=== PATIENT | female | born 1985 | race Caucasian/White ===

== ENCOUNTER → 2016-11-02 | Outpatient (CLI) | payer SELFPAY ==
[2016-11-02 10:02] LABS: BASOPHILS # (AUTO) 0.04 10*3/UL; BASOPHILS % (AUTO) 0.9 % (0-1); EOSINOPHILS # (AUTO) 0.02 10*3/UL; EOSINOPHILS % (AUTO) 0.5 % (0-8); HEMATOCRIT 36.5 % (37.0-47.0); HEMOGLOBIN 12.5 g/dL (12.0-16.0); LYMPHOCYTES # (AUTO) 0.84 10*3/uL; MEAN CORPUSCULAR HEMOGLOBIN 28.2 PG (27-31); MEAN CORPUSCULAR HGB CONC 34.2 g/dL (33-37); MEAN CORPUSCULAR VOLUME 82.4 FL (81-99); MEAN PLATELET VOLUME 9.5 FL (7.4-12.2); MONOCYTES # (AUTO) 0.75 10*3/UL (0.3-0.8); MONOCYTES % (AUTO) 17.6 % (5-15); NEUTROPHILS # (AUTO) 2.59 10*3/UL; RED BLOOD COUNT 4.43 10^6/uL (4.20-5.40)
[2016-11-02 10:10] LABS: PLATELET MORPHOLOGY COMMENT NORMAL MORPHOLOGY (NORM); RBC MORPHOLOGY COMMENT NORMAL MORPHOLOGY (NORM); WBC MORPHOLOGY COMMENT NORMAL MORPHOLOGY (NORM)
[2016-11-02 10:40] LABS: HIV ANTIBODY NEGATIVE (N); HIV-1 P24 ANTIGEN NEGATIVE (N)
[2016-11-04 08:46] LABS: HEP B SURFACE AG Negative (Negative)
== END ==
LOC: MOB LAB 09:21
PROVIDERS: ATTEND Obstetrics & Gynecology
DX: Z36 Encounter for antenatal screening of mother (principal)
CPT/HCPCS: 36415; 80081; 86900; 86901; 87088

== ENCOUNTER → 2017-01-30 | Outpatient (CLI) | payer SELFPAY ==
--- NOTE | 2017-01-30 13:40 | DI ---
US OB GTE 14 WEEKS,01/30/2017 10:54 AM: Clinical History: screening. Previous Exam: None at this facility. Findings: Multiple grayscale and color Doppler sonographic images are obtained through the pelvis demonstrating a single live intrauterine gestation in vertex presentation. Amniotic fluid level is subjectively no rmal. There is normal motion in the limbs. Detected Doppler heart tones measured 146 beats per minute. The placenta is grade 1 and anterior without visible defects. Estimated gestational age was determined by a composite of biparietal diameter, head circumference, a bdominal circumference and femur length yielding an estimated gestational age by ultrasound of 20 wee ks one day. Estimated weight is 337 g (64th percentile). There are no anatomic abnormalities. Impression: Single live intrauterine gestation with size equal to dates. Normal anatomy scan.
== END ==
LOC: US 10:49
PROVIDERS: ATTEND Obstetrics & Gynecology
DX: Z36 Encounter for antenatal screening of mother (principal); Z3A.19 19 weeks gestation of pregnancy
CPT/HCPCS: 76805

== ENCOUNTER 2017-06-11 22:49 | Inpatient (IN) ==
[2017-06-11] MEDS ORDERED: METHYLERGONOVINE MALEATE 0.2 MG/1 ML VIAL IM PRN (22:56)
[2017-06-11] MEDS ORDERED: OXYTOCIN 10 UNIT/1 ML IM PRN (22:56)
[2017-06-11] MEDS ORDERED: Phenylephrine Inj 50 MCG in Normal Saline Flush 0.5 ML IVP PRN (22:56)
[2017-06-11] MEDS ORDERED: ONDANSETRON 4 MG/2 ML VIAL IVP PRN (22:56)
[2017-06-11] MEDS ORDERED: NALOXONE 0.4 MG/1 ML VIAL IVP PRN (22:56)
[2017-06-11] MEDS ORDERED: CALCIUM CARBONATE 500 MG (TUMS) CHEWABLE TABLET PO PRN (22:56)
[2017-06-11] MEDS ORDERED: Lidocaine 1% 10 MG/ML - 20 ML VIAL SUBCUT PRN (22:56)
[2017-06-11] MEDS ORDERED: LIDOCAINE HCL 2 % 10 ML JELLY URO-JECT TOPICAL PRN (22:56)
[2017-06-11] MEDS ORDERED: MISOPROSTOL 200 MCG TABLET RECTAL PRN (22:56)
[2017-06-11] MEDS ORDERED: NORMAL SALINE 10 ML SYRINGE FLUSH IVP PRN (22:56)
[2017-06-11] MEDS ORDERED: CITRIC ACID/SODIUM CITRATE 30 ML CUP PO PRN (22:56)
[2017-06-11] MEDS ORDERED: Famotidine Inj 20 MG in Normal Saline Flush 10 ML IVP PRN ×4 (22:56)
[2017-06-11] MEDS ORDERED: diphenhydrAMINE 50 MG/1 ML VIAL IVP PRN (22:56)
[2017-06-11] MEDS ORDERED: Naloxone Inj 0.01 MG in Normal Saline Flush 1 ML IVP PRN (22:56)
[2017-06-11] MEDS ORDERED: ePHEDrine Inj 5 MG in Normal Saline Flush 1 ML IVP PRN (22:56)
[2017-06-11] MEDS ORDERED: BUTORPHANOL TARTRATE 2 MG/1 ML VIAL IVP PRN (22:56)
[2017-06-11] MEDS ORDERED: LIDOCAINE W/ SODIUM BICARB 0.5 ML SYR SUBD PRN (22:56)
[2017-06-11] MEDS ORDERED: Carboprost Inj 250 MCG/ML AMP IM PRN (22:56)
[2017-06-11] MEDS ORDERED: Metoclopramide Inj 10 MG/2 ML VIAL IV PRN (22:56)
[2017-06-11] MEDS ORDERED: CefOXitin Inj 2 GM in Sodium Chloride 0.9% 100 ML IV PRN (22:56)
[2017-06-11] MEDS ORDERED: Nalbuphine Inj 20 MG/ML Ampule IVP PRN (22:56)
[2017-06-11] MEDS ORDERED: fentaNYL Inj 100 MCG/2 ML VIAL IV PRN (22:56)
[2017-06-11] MEDS ORDERED: TERBUTALINE SULFATE 1 MG/1 ML SDV SUBCUT PRN (22:56)
[2017-06-11] MEDS ORDERED: Oxytocin 20 Units + LR 20 UNIT/1,000 ML BAG IV SCH (23:00)
[2017-06-11] MEDS: Lactated Ringers-OB Dept 1,000 ML PRIMARY IV SCH (23:05)
[2017-06-11 23:28] LABS: Hematocrit [HCT] 33.2 % (37.0-47.0); Hemoglobin [HGB] 11.3 g/dL (12.0-16.0); MEAN CORPUSCULAR HEMOGLOBIN 28.3 PG (27-31); MEAN CORPUSCULAR VOLUME 83.2 FL (81-99); MEAN PLATELET VOLUME 10.3 FL (7.4-12.2); RED BLOOD COUNT 3.99 10^6/uL (4.20-5.40)
[2017-06-11] MEDS ORDERED: Fent/Bupiv 2mcg/0.0625% Epid 250 ML ONE (23:53)
[2017-06-12] MEDS ORDERED: diphenhydrAMINE 50 MG/1 ML VIAL IVP PRN ×2 (00:06→07:06)
[2017-06-12] MEDS ORDERED: Nalbuphine Inj 20 MG/ML Ampule IVP PRN ×2 (00:06→07:06)
[2017-06-12] MEDS ORDERED: Phenylephrine Inj 50 MCG in Normal Saline Flush 0.5 ML IVP PRN (00:06)
[2017-06-12] MEDS ORDERED: BUTORPHANOL TARTRATE 2 MG/1 ML VIAL IVP PRN (00:06)
[2017-06-12] MEDS ORDERED: Naloxone Inj 0.01 MG in Normal Saline Flush 1 ML IVP PRN (00:06)
[2017-06-12] MEDS ORDERED: NALOXONE 0.4 MG/1 ML VIAL IVP PRN (00:06)
[2017-06-12] MEDS ORDERED: ePHEDrine Inj 5 MG in Normal Saline Flush 1 ML IVP PRN (00:06)
--- NOTE | 2017-06-12 00:09 | CRNA.PROGR ---
Anesthesia Time - - Start date: 06/12/17 End date: 06/12/17 - Procedure/Recovery Time Anesthesia : Time In: 23:38 Anesthesia : Time Out: 06:34 Anesthesia : Total Time: -1024 - Total Anesthesia Time Total Anesthesia Time (minutes): -1024 - Other Weight: 50.349 kg Height: 5 ft 2 in Body Mass Index (BMI): 20.2 Physical Status: P2 Anesthesia Type: Epidural
--- NOTE | 2017-06-12 00:12 | CRNA.PROCE ---
Central Neuraxis Block Placemt - - Safety Measures: Time Out Taken, Site Verified - - Type of Block: Epidural Reason for Block: Analgesia Moniters Used During Block: SPO2, NIBP Positioning: Sitting Skin Prep Used: Betadine Draped: Yes Skin Infiltration - Enter Amount Used in Comment Field: 1% Xylocaine (mL): Yes ( skin wheal) Introducer User: 18 Gauge Weston Local Anesthetic - Enter Amount Used in Comment Field: 5.0 % Xylocaine with Dextrose (ml): Yes (5ml) Number of Centimeters Catheter Threaded: 4 Bioclusive Dressing Applied: Yes - - Additional Details: Requests epidural for KARAN analgesia. Reviewed risks and benefits, wishes to proceed. Sitting, landmarks id'd, betadine prep, drape, skin wheal L3-4, #18 hustead passed and crisp GENEVIEVE to saline first pass. Cath easily 4cm. 5ml test dose neg and cath secured. PCEA started. Anesthesia Time - Other Weight: 50.349 kg Height: 5 ft 2 in Body Mass Index (BMI): 20.2
--- NOTE | 2017-06-12 07:00 | OB.DEL.SUM ---
Delivery Note Delivery Summary: 32 yo now Para 3 patient admitted early this morning at 39 6/7 weeks EGA in active labor. She received an epidural and progressed well through active labor with a category 1 FHRT to complete dilation. Amniotomy was performed with return of clear fluid. She pushed several times to of a viable male infant, Apgars 8/9, over a right labial laceration from OA position. The placenta delivered promptly, spontaneously, intact, with a 3 vessel cord. Repair of the labial lac was made with 3-0 Vicryl Rapide. EBL 250 ml. There were no complications. Mother and baby tolerated delivery well.
[2017-06-12] MEDS ORDERED: GLYCERIN/WITCH HAZEL 1 BOX TOPICAL PRN (07:06)
[2017-06-12] MEDS ORDERED: ACETAMINOPHEN 325 MG TABLET PO PRN (07:06)
[2017-06-12] MEDS ORDERED: Oxytocin 20 Units + LR 20 UNIT/1,000 ML BAG IV SCH (07:06)
[2017-06-12] MEDS ORDERED: CALCIUM CARBONATE 500 MG (TUMS) CHEWABLE TABLET PO PRN (07:06)
[2017-06-12] MEDS ORDERED: HYDROcodone-APAP 5 MG -325 MG TABLET PO PRN (07:06)
[2017-06-12] MEDS ORDERED: LANOLIN HPA 40 GM TUBE TOPICAL PRN (07:06)
[2017-06-12] MEDS ORDERED: Ondansetron ODT Tab 4 MG TAB PO PRN (07:06)
[2017-06-12] MEDS ORDERED: DIPH,PERTUSS,TET(ADACEL) VAC/PF 0.5 ML (Tdap) IM ONE (07:06)
[2017-06-12] MEDS ORDERED: diphenhydrAMINE 25 MG CAPSULE PO PRN (07:06)
[2017-06-12] MEDS ORDERED: NORMAL SALINE 10 ML SYRINGE FLUSH IVP PRN (07:06)
[2017-06-12] MEDS ORDERED: LIDOCAINE HCL 2 % 10 ML JELLY URO-JECT TOPICAL PRN (07:06)
[2017-06-12] MEDS ORDERED: ONDANSETRON 4 MG/2 ML VIAL IVP PRN (07:06)
[2017-06-12] MEDS ORDERED: BENZOCAINE/MENTHOL SPRAY 56 GM BOTTLE TOPICAL PRN (07:06)
[2017-06-12] MEDS: Lactated Ringers-OB Dept 1,000 ML PRIMARY IV SCH (08:28)
[2017-06-12] MEDS: DOCUSATE 100 MG CAPSULE PO SCH ×2 (08:33→21:00)
[2017-06-12] MEDS: IBUPROFEN 800 MG TABLET PO PRN ×2 (08:34→16:05)
--- NOTE | 2017-06-12 10:29 | CRNA.PROGR ---
Anesthesia Note - Progress Notes Anesthesia Progress Note: Sitting up in bed visiting with family. Epidural dc'd by OB rn intact. She has no questions or concerns regarding her anesthetic course. Vital Signs (24 hrs) Temp Pulse Pulse Resp BP BP Pulse Ox 06/12/17 08:35 97.8 F 68 18 91/61 100 06/12/17 08:34 97.8 F 06/12/17 08:00 97.8 F 65 17 86/56 100 06/12/17 07:30 80 17 91/61 99 06/12/17 07:15 75 18 97/75 100 06/12/17 07:00 97.6 F 78 80 17 110/65 100/72 100 06/12/17 06:45 80 18 124/73 98 06/12/17 06:15 97.6 F 80 18 100 06/12/17 06:00 66 16 97 06/12/17 05:45 71 16 93/52 98 06/12/17 05:37 79 16 86/42 98 06/12/17 05:15 68 16 99 06/12/17 05:00 67 16 80/52 99 06/12/17 04:45 75 16 100 06/12/17 04:30 74 16 96/59 100 06/12/17 04:15 76 16 96/73 100 06/12/17 04:00 78 16 94/63 100 06/12/17 03:45 75 16 100 06/12/17 03:30 82 16 95/57 99 06/12/17 03:15 70 16 91/59 100 06/12/17 03:00 81 16 74/47 100 06/12/17 02:45 75 16 99 06/12/17 02:15 72 16 98 06/12/17 02:00 74 16 99 06/12/17 01:45 76 16 91/57 100 06/12/17 01:30 74 16 100 06/12/17 01:15 95 18 100 06/12/17 01:00 85 18 100 06/12/17 00:45 87 100 06/12/17 00:30 72 99 06/12/17 00:06 86 18 101/59 97 06/11/17 23:00 99 06/11/17 22:56 97.6 F 90 18 101/59 99
[2017-06-13] MEDS: IBUPROFEN 800 MG TABLET PO PRN (00:28)
[2017-06-13 05:31] VITALS: TEMP 98.3
[2017-06-13 06:43] LABS: Hematocrit [HCT] 30.5 % (37.0-47.0); Hemoglobin [HGB] 10.4 g/dL (12.0-16.0); MEAN CORPUSCULAR HEMOGLOBIN 28.7 PG (27-31); MEAN CORPUSCULAR HGB CONC 34.1 g/dL (33-37); MEAN CORPUSCULAR VOLUME 84.3 FL (81-99); MEAN PLATELET VOLUME 10.6 FL (7.4-12.2); RED BLOOD COUNT 3.62 10^6/uL (4.20-5.40)
[2017-06-13 08:24] VITALS: BP 98/62; RESP 14; O2SAT 99
[2017-06-13] MEDS ORDERED: Prenatal Multivitamin Tab 1 TAB TAB PO SCH (09:00)
--- NOTE | 2017-06-13 09:37 | DCSUMMARY ---
Hospitalization Summary Admit Date: 06/12/17 Discharge Date: 06/13/17 Primary Diagnosis:: Term , Delivered Delivery Type: Vaginal Hospital Course: Normal, uncomplicated labor, delivery, and course. Discharge to home on PPD 1 in good condition. / Postop Complications: None Complications: None Exam - Vitals Vital Signs: Vital Signs Temperature 98.3 F Temperature Source Oral Pulse Rate [Pulse Oximeter 71 Right Radial] Pulse Rate 57 Respiratory Rate 14 Blood Pressure [Right Arm] 98/62 Blood Pressure 91/61 Pulse Ox 99 Oxygen Delivery Method Room Air Height 5 ft 2 in Weight 111 lb
--- NOTE | 2017-06-13 09:38 | OB.PROGRES ---
Subjective Post Op Day: 1 Pain Management: PO James Catheter: No Flatus: Yes Diet: Regular Feeding Method: Exculsively Ambulating: Yes Concerns / Additional Information: No complaints. Requesting discharge to home. Assesstment / Plan Assessment / Plan: PPD 1 doing well. Discharge to home.
== END 2017-06-13 09:55 | disposition home or self-care (01) | DRG 775 ==
LOC: EDSTATUS 22:49 → OBIP 22:56
PROVIDERS: ADMIT Obstetrics & Gynecology; ATTEND Obstetrics & Gynecology